=== PATIENT | male | born 1990 | race Caucasian/White ===

== ENCOUNTER 2017-06-03 21:20 | Emergency (ER) | payer OTHER ==
[~2017-06-03] VITALS: Ht 193 cm; Wt 117.9 kg
== END 2017-06-03 22:49 | disposition home or self-care (01) ==
LOC: ER 21:20
DX: M54.5 Low back pain (principal)

== ENCOUNTER 2017-12-24 14:28 | Emergency (ER) | payer OTHER ==
[~2017-12-24] VITALS: Ht 193 cm; Wt 117.9 kg
== END 2017-12-24 21:18 | disposition home or self-care (01) ==
LOC: ER 14:28
DX: M54.5 Low back pain (principal)

== ENCOUNTER 2018-05-14 16:10 | Emergency (ER) | payer OTHER ==
[~2018-05-14] VITALS: Ht 193 cm; Wt 118.8 kg
== END 2018-05-14 18:00 | disposition home or self-care (01) ==
LOC: ER 16:10
DX: J06.9 Acute upper respiratory infection, unspecified (principal)

== ENCOUNTER → 2019-07-08 | Emergency (ER) | payer OTHER ==
[~2019-07-08] VITALS: Ht 193 cm; Wt 120.2 kg
== END | disposition home or self-care (01) ==
LOC: ER 22:54
DX: J06.9 Acute upper respiratory infection, unspecified (principal)

== ENCOUNTER 2019-12-21 01:52 | Emergency (ER) | payer OTHER ==
[~2019-12-21] VITALS: Ht 193 cm; Wt 125.6 kg
[2019-12-21] MEDS ORDERED: KETO10TA2 PO (03:54)
== END 2019-12-21 04:03 ==
LOC: ER 01:52
DX: S63.8X2A Sprain of other part of left wrist and hand, initial encounter (principal); X50.9XXA Other and unspecified overexertion or strenuous movements or postures, initial encounter; Y93.89 Activity, other specified; Y92.092 Bedroom in other non-institutional residence as the place of occurrence of the external cause; Y99.8 Other external cause status

== ENCOUNTER 2021-04-18 20:56 | Emergency (ER) | payer OTHER ==
[~2021-04-18] VITALS: Ht 193 cm; Wt 114.8 kg
[~2021-04-18 20:56] MED LIST: KETO10TA2 PO
== END 2021-04-18 22:49 | disposition home or self-care (01) ==
LOC: ER 20:56
DX: B34.9 Viral infection, unspecified (principal); Z20.822 Contact with and (suspected) exposure to COVID-19